=== PATIENT | male | born 1965 | race African-American/Black ===

== ENCOUNTER 2025-01-08 03:34 | Inpatient (IN) | payer MEDICAID ==
[~2025-01-08] VITALS: Ht 180.3 cm; Wt 157.4 kg
[2025-01-08] VITALS (83 sets, daily range): BP systolic 105–206; BP diastolic 73–135; PULSE 68–177; RESP 14–26; TEMP 36.8–37.1408; O2SAT 73–100
[2025-01-08] MEDS: METHYLPREDNISOLONE SOD SUCC 125MG/2ML (ACT-O-VIAL) IV ONE (03:54)
[2025-01-08] MEDS: FUROSEMIDE 40MG/4ML VIAL IV ONE (03:54)
[2025-01-08] MEDS: ONDANSETRON HCL 4MG/2ML INJ IV ONE (03:54)
[2025-01-08] MEDS: MORPHINE SULFATE 4 MG/ML INJ (FOR IV/IM USE) IV ONE (03:55)
[2025-01-08] MEDS: MAGNESIUM 2 G PREMIX 50 ML IV ONE (03:56)
[2025-01-08] MEDS: IPRATROPIUM BROMIDE (0.02%) 0.5MG/2.5ML NEB HHN SCH ×2 (03:58→08:09)
[2025-01-08] MEDS: ALBUTEROL (0.083%) 2.5MG/3ML NEB HHN SCH (03:59)
[2025-01-08 04:02] LABS: BASOPHILS % 1.1 % (0.0-2.0); EOSINOPHILS % 2.8 % (0.0-5.0); HEMATOCRIT. 39.3 % (42.0-52.0); HEMOGLOBIN. 13.2 g/dL (14.0-18.0); LYMPHOCYTES % 23.5 % (20.0-50.0); MEAN PLATELET VOLUME 8.1 fl (7.4-10.4); MONOCYTES % 7.1 % (2.0-8.0); NEUTROPHILS % 65.5 % (40.0-76.0); PLATELET 364 x1000/uL (130-400); RED BLOOD CELL COUNT 4.72 mill/uL (4.7-6.1); RED CELL DISTRIBUTION WIDTH 17.3 % (11.6-14.6)
[2025-01-08] MEDS: NITROGLYCERIN 50MG PREMIX 250 ML IV STA (04:11)
[2025-01-08 04:15] LABS: CREATININE 1.8 mg/dL (0.6-1.3); UREA NITROGEN BLOOD 24 mg/dL (9-23)
[2025-01-08 04:17] LABS: ASPARTATE AMINOTRANSFERASE 27 IU/L (<34); BILIRUBIN DIRECT 0.5 mg/dL (<=3.0); BILIRUBIN TOTAL 1.6 mg/dL (0.1-1.0); INR 1.1; PROTEIN TOTAL 7.3 g/dL (6.0-8.3)
[2025-01-08 04:21] LABS: TROPONIN I HIGH SENSITIVITY 104 ng/L (3.0-53)
[2025-01-08 04:24] LABS: BG BASE EXCESS -7.6 mmol/L (-2.0-3.0); BG CARBOXYHEMOGLOBIN 1.1 % (0.5-1.5); BG DEOXYHEMOGLOBIN 3.0 % (0.0-5.0); BG FRACTION INSPIRED OXYGEN 100; BG HCO3 ACT 24.7 mmol/L (21.0-28.0); BG METHEMOGLOBIN 0.3 % (0.5-1.5); BG OXYGEN SATURATION 97.0 % (94.0-98.0); BG OXYHEMOGLOBIN 95.6 % (94.0-98.0); BG PCO2 87.9 mmHg (35.0-48.0); BG PH 7.067 (7.350-7.450); BG PO2 120.8 mmHg (83.0-108.0); BG SAMPLE SITE RIGHT RADIAL; BG TOTAL HEMOGLOBIN 14.4 g/dL (13.5-17.5); BG VENT MODE MASK - BIPAP
[2025-01-08] MEDS: ETOMIDATE 2MG/ML 10ML VIAL IV ONE (04:30)
[2025-01-08] MEDS: ROCURONIUM BROMIDE 10MG/ML VIAL 5ML IV ONE (04:30)
[2025-01-08 05:42] LABS: CLARITY URINE CLOUDY (CLEAR); COLOR URINE DARK YELLOW (YELLOW); GLUCOSE URINE NEGATIVE (NEGATIVE); KETONES URINE NEGATIVE (NEGATIVE); LEUKOCYTE ESTERASE URINE NEGATIVE (NEGATIVE); NITRITE URINE NEGATIVE (NEGATIVE); OCCULT BLOOD URINE 2+ (NEGATIVE); PH URINE 5.5 (4.5-8.0); PROTEIN URINE 4+ (NEGATIVE); SPECIFIC GRAVITY URINE 1.022 (1.005-1.030); UROBILINOGEN URINE 1.0 E.U./dL (0.2-1.0)
[2025-01-08] MEDS: PROPOFOL 10MG/ML 100ML 100 ML IV SCH (05:44)
[2025-01-08] MEDS ORDERED: VANCOMYCIN 1G PREMIX 200 ML IV SCH (05:45)
[2025-01-08] MEDS ORDERED: VANCOMYCIN 2GM PMX (XELLIA) 400 ML IV NR (06:00)
[2025-01-08 06:04] LABS: SQUAMOUS EPITHELIAL CELL URINE 1+ /lpf (RARE/1+)
[2025-01-08 06:14] LABS: AMORPHOUS SEDIMENT URINE 1+ /lpf; BACTERIA URINE 1+
[2025-01-08] MEDS ORDERED: NICARDIPINE 40MG/200ML PREMIX 200 ML IV PRN (06:30)
[2025-01-08] MEDS: METOPROLOL TARTRATE 5MG/5ML VIAL IV SCH (06:50)
[2025-01-08] MEDS ORDERED: LIDOCAINE HCL 1% 10 MG/ML 10ML VIAL ONE (08:23)
[2025-01-08] MEDS ORDERED: FENTANYL CITRATE/PF 2,500 MCG in SODIUM CHLORIDE 0.9% 200 ML IV PRN (08:30)
[2025-01-08] MEDS ORDERED: FENTANYL 2500MCG/250ML PMX 250 ML IV PRN (08:30)
[2025-01-08 09:23] LABS: BG BASE EXCESS -6.4 mmol/L (-2.0-3.0); BG CARBOXYHEMOGLOBIN 0.4 % (0.5-1.5); BG DEOXYHEMOGLOBIN 7.0 % (0.0-5.0); BG FRACTION INSPIRED OXYGEN 80; BG HCO3 ACT 21.8 mmol/L (21.0-28.0); BG METHEMOGLOBIN 0.3 % (0.5-1.5); BG OXYGEN SATURATION 93.0 % (94.0-98.0); BG OXYHEMOGLOBIN 92.3 % (94.0-98.0); BG PCO2 55.1 mmHg (35.0-48.0); BG PEEP (cmH2O) 5.0 cmH2O; BG PH 7.215 (7.350-7.450); BG PO2 72.5 mmHg (83.0-108.0); BG SAMPLE SITE LEFT RADIAL; BG TIDAL VOLUME(mL) 500.0 mL; BG TOTAL HEMOGLOBIN 12.9 g/dL (13.5-17.5); BG VENT MODE VENT - AC; BG VENT RATE 20.0 set
[2025-01-08 10:36] LABS: TRIGLYCERIDE 131.0 mg/dL (0-150)
[2025-01-08 10:37] LABS: LDL CHOLESTEROL 84.0 mg/dL (5-100)
[2025-01-08] MEDS: DEXT 5%/0.9% NACL 1,000 ML IV SCH (10:37)
[2025-01-08] MEDS: PIPERACILLIN/TAZO 3.375G/50ML 50 ML IV SCH (10:37)
[2025-01-08] MEDS: PROPOFOL 10MG/ML 100ML 100 ML IV PRN (10:38)
[2025-01-08] MEDS ORDERED: ONDANSETRON HCL 4MG/2ML INJ IV PRN (10:45)
[2025-01-08 10:47] LABS: TROPONIN I HIGH SENSITIVITY 84.0 ng/L (3.0-53)
[2025-01-08] MEDS: SODIUM CHLORIDE 0.9% 3ML FLUSH IVF SCH (11:49)
[2025-01-08] MEDS: FENTANYL 2500MCG/250ML PMX 250 ML IV PRN (13:21)
[2025-01-08] MEDS: VANCOMYCIN 1.25GM/250ML IV SCH (13:39)
[2025-01-08] MEDS: METHYLPREDNISOLONE SOD SUCC 125MG/2ML (ACT-O-VIAL) IV SCH (13:40)
[2025-01-08] MEDS: ENALAPRIL 1.25MG/ML VIAL 1ML IV SCH (13:40)
[2025-01-08] MEDS: PANTOPRAZOLE SODIUM 40 MG/VIAL IV SCH (13:40)
[2025-01-08 13:55] LABS: CLARITY URINE CLEAR (CLEAR); COLOR URINE YELLOW (YELLOW); GLUCOSE URINE NEGATIVE (NEGATIVE); KETONES URINE NEGATIVE (NEGATIVE); LEUKOCYTE ESTERASE URINE NEGATIVE (NEGATIVE); NITRITE URINE NEGATIVE (NEGATIVE); OCCULT BLOOD URINE 2+ (NEGATIVE); PH URINE 5.0 (4.5-8.0); PROTEIN URINE TRACE (NEGATIVE); SPECIFIC GRAVITY URINE 1.013 (1.005-1.030); UROBILINOGEN URINE 0.2 E.U./dL (0.2-1.0)
[2025-01-08 14:08] LABS: SQUAMOUS EPITHELIAL CELL URINE RARE /lpf (RARE/1+)
[2025-01-08 14:09] LABS: RBC URINE 25-50 /hpf (0-2); WBC URINE 0-2 /hpf (0-2)
[2025-01-08 14:10] LABS: BACTERIA URINE TRACE
[2025-01-08 14:19] LABS: *AMPHETAMINES SCREEN URINE NEGATIVE (NEGATIVE); *BARBITURATES SCREEN URINE NEGATIVE (NEGATIVE); *BENZODIAZEPINES SCREEN URINE NEGATIVE (NEGATIVE); *COCAINE SCREEN URINE NEGATIVE (NEGATIVE); CANNABINOID URINE SCREEN PRESUMPTIVE POSITIVE (NEGATIVE); ECSTASY MDMA SCREEN URINE NEGATIVE (NEGATIVE); METHADONE URINE SCREEN NEGATIVE (NEGATIVE); OPIATES URINE SCREEN PRESUMPTIVE POSITIVE (NEGATIVE); PHENCYCLIDINE URINE SCREEN NEGATIVE (NEGATIVE)
[2025-01-08 16:20] LABS: TROPONIN I HIGH SENSITIVITY 67 ng/L (3.0-53)
[2025-01-08 19:49] LABS: INFLUENZA TYPE A Presumptive Negative (Pres. Neg.)
[2025-01-08 19:50] LABS: INFLUENZA TYPE B Presumptive Negative (Pres. Neg.)
[2025-01-08 19:51] LABS: RESPIRATORY SYNCYTIAL VIRUS Not Detected (Not Detectd)
[2025-01-08 21:54] LABS: BG BASE EXCESS 0.4 mmol/L (-2.0-3.0); BG CARBOXYHEMOGLOBIN 0.6 % (0.5-1.5); BG DEOXYHEMOGLOBIN 1.3 % (0.0-5.0); BG FRACTION INSPIRED OXYGEN 80; BG HCO3 ACT 22.9 mmol/L (21.0-28.0); BG METHEMOGLOBIN 0.1 % (0.5-1.5); BG OXYGEN SATURATION 98.7 % (94.0-98.0); BG OXYHEMOGLOBIN 98.0 % (94.0-98.0); BG PCO2 30.2 mmHg (35.0-48.0); BG PEEP (cmH2O) 5.0 cmH2O; BG PH 7.498 (7.350-7.450); BG PO2 126.5 mmHg (83.0-108.0); BG SAMPLE SITE ALINE; BG TIDAL VOLUME(mL) 550.0 mL; BG TOTAL HEMOGLOBIN 11.4 g/dL (13.5-17.5); BG VENT MODE VENT - AC; BG VENT RATE 26.0 set
[2025-01-08] MEDS ORDERED: DEXTROSE 50% WATER 50ML SYRINGE IV PRN (23:45)
[2025-01-08] MEDS: BLOOD SUGAR DIAGNOSTIC STRIP TEST SCH (23:49)
[2025-01-08] MEDS: INSULIN LISPRO 100 UNITS/ML SUBCUT SCH (23:52)
[2025-01-09] VITALS (105 sets, daily range): BP systolic 118–149; BP diastolic 68–101; PULSE 57–82; RESP 18–30; TEMP 36.9–37.2; O2SAT 94–100
[2025-01-09 06:29] LABS: HEMATOCRIT. 33.3 % (42.0-52.0); HEMOGLOBIN. 11.2 g/dL (14.0-18.0); MEAN PLATELET VOLUME 8.2 fl (7.4-10.4); PLATELET 245 x1000/uL (130-400); RED BLOOD CELL COUNT 4.06 mill/uL (4.7-6.1); RED CELL DISTRIBUTION WIDTH 17.1 % (11.6-14.6)
[2025-01-09] MEDS ORDERED: BLOOD SUGAR DIAGNOSTIC STRIP TEST SCH (06:30)
[2025-01-09 06:32] LABS: CREATININE 2.1 mg/dL (0.6-1.3); TRIGLYCERIDE 145 mg/dL (0-150); UREA NITROGEN BLOOD 30 mg/dL (9-23)
[2025-01-09 06:36] LABS: TROPONIN I HIGH SENSITIVITY 78 ng/L (3.0-53)
[2025-01-09] MEDS ORDERED: INSULIN LISPRO 100 UNITS/ML SUBCUT SCH (07:00)
[2025-01-09] MEDS ORDERED: VANCOMYCIN 1GM/200ML PMX (BAXTER) IV SCH (09:00)
[2025-01-09 09:38] LABS: BG BASE EXCESS 0.1 mmol/L (-2.0-3.0); BG CARBOXYHEMOGLOBIN 0.3 % (0.5-1.5); BG DEOXYHEMOGLOBIN 1.2 % (0.0-5.0); BG FRACTION INSPIRED OXYGEN 80; BG HCO3 ACT 22.8 mmol/L (21.0-28.0); BG METHEMOGLOBIN 0.3 % (0.5-1.5); BG OXYGEN SATURATION 98.8 % (94.0-98.0); BG OXYHEMOGLOBIN 98.2 % (94.0-98.0); BG PCO2 30.5 mmHg (35.0-48.0); BG PEEP (cmH2O) 5.0 cmH2O; BG PH 7.491 (7.350-7.450); BG PO2 134.2 mmHg (83.0-108.0); BG SAMPLE SITE RIGHT RADIAL; BG TIDAL VOLUME(mL) 550.0 mL; BG TOTAL HEMOGLOBIN 11.1 g/dL (13.5-17.5); BG VENT MODE VENT - AC; BG VENT RATE 26.0 set
[2025-01-09] MEDS: AMLODIPINE 5MG TABLET PO SCH ×2 (09:59→21:08)
[2025-01-09] MEDS: FUROSEMIDE 40MG/4ML VIAL IVP SCH (09:59)
[2025-01-09 11:23] LABS: BAND% 8.0 % (1.0-6.0); LYMPHOCYTES % MANUAL 4.0 % (20.0-50.0); MONOCYTES % MANUAL 3.0 % (2.0-8.0); NEUTROPHILS % MANUAL 85.0 % (45.0-75.0); PLATELET ESTIMATE NORMAL
[2025-01-09] MEDS: ENOXAPARIN 40MG/0.4ML SYR SUBCUT SCH (11:54)
[2025-01-09] MEDS: NITROGLYCERIN OINT 1GM/INCH UDPKT TD SCH (11:54)
[2025-01-09] MEDS: IPRATROPIUM/ALBUTEROL 0.5-3(2.5)MG/3ML NEB HHN PRN (12:25)
[2025-01-09] MEDS: IPRATROPIUM/ALBUTEROL 0.5-3(2.5)MG/3ML NEB HHN SCH (14:40)
[2025-01-09] MEDS: PROPOFOL 10MG/ML 100ML 100 ML IV PRN (14:47)
[2025-01-09] MEDS: VANCOMYCIN 1GM PMX (XELLIA) 200 ML IV SCH (14:47)
[2025-01-10] VITALS (106 sets, daily range): BP systolic 108–148; BP diastolic 57–103; PULSE 48–85; RESP 19–32; TEMP 36.6–37.1; O2SAT 92–99
[2025-01-10 05:15] LABS: HEMATOCRIT. 32.0 % (42.0-52.0); HEMOGLOBIN. 10.8 g/dL (14.0-18.0); MEAN PLATELET VOLUME 8.4 fl (7.4-10.4); PLATELET 220 x1000/uL (130-400); RED BLOOD CELL COUNT 3.94 mill/uL (4.7-6.1); RED CELL DISTRIBUTION WIDTH 17.2 % (11.6-14.6)
[2025-01-10 05:27] LABS: CREATININE 2.4 mg/dL (0.6-1.3)
[2025-01-10 05:28] LABS: TRIGLYCERIDE 249.0 mg/dL (0-150); UREA NITROGEN BLOOD 38.0 mg/dL (9-23)
[2025-01-10 10:30] LABS: BG BASE EXCESS -1.0 mmol/L (-2.0-3.0); BG CARBOXYHEMOGLOBIN 0.8 % (0.5-1.5); BG DEOXYHEMOGLOBIN 4.8 % (0.0-5.0); BG FRACTION INSPIRED OXYGEN 60; BG HCO3 ACT 23.8 mmol/L (21.0-28.0); BG METHEMOGLOBIN 0.1 % (0.5-1.5); BG OXYGEN SATURATION 95.2 % (94.0-98.0); BG OXYHEMOGLOBIN 94.3 % (94.0-98.0); BG PCO2 40.1 mmHg (35.0-48.0); BG PEEP (cmH2O) 5.0 cmH2O; BG PH 7.392 (7.350-7.450); BG PO2 81.2 mmHg (83.0-108.0); BG SAMPLE SITE RIGHT RADIAL; BG TIDAL VOLUME(mL) 500.0 mL; BG TOTAL HEMOGLOBIN 12.1 g/dL (13.5-17.5); BG VENT MODE VENT - AC; BG VENT RATE 22.0 set
[2025-01-10] MEDS: PROPOFOL 10MG/ML 100ML 100 ML IV PRN (13:00)
[2025-01-10] MEDS: METHYLPREDNISOLONE SOD SUCC 40MG/ML (ACT-O-VIAL) IV SCH (13:02)
[2025-01-10] MEDS: ENALAPRIL 1.25MG/ML VIAL 1ML IV SCH (13:03)
[2025-01-10 14:27] LABS: BAND% 2.0 % (1.0-6.0); LYMPHOCYTES % MANUAL 11.0 % (20.0-50.0); MONOCYTES % MANUAL 1.0 % (2.0-8.0); NEUTROPHILS % MANUAL 86.0 % (45.0-75.0); PLATELET ESTIMATE NORMAL
[2025-01-10 19:08] LABS: SODIUM URINE RANDOM 25.0 mEq/L
[2025-01-10 19:13] LABS: CLARITY URINE TURBID (CLEAR); COLOR URINE YELLOW (YELLOW); PH URINE 5.5 (4.5-8.0); SPECIFIC GRAVITY URINE 1.023 (1.005-1.030)
[2025-01-10 19:14] LABS: GLUCOSE URINE NEGATIVE (NEGATIVE); KETONES URINE NEGATIVE (NEGATIVE); NITRITE URINE NEGATIVE (NEGATIVE); UROBILINOGEN URINE 1.0 E.U./dL (0.2-1.0)
[2025-01-10 19:15] LABS: CREATININE URINE RANDOM 118.9 mg/dL; LEUKOCYTE ESTERASE URINE 1+ (NEGATIVE); OCCULT BLOOD URINE 3+ (NEGATIVE); PROTEIN URINE 2+ (NEGATIVE)
[2025-01-10 19:42] LABS: OSMOLALITY URINE 567.0 mOsm/kg (500-850)
[2025-01-10 20:05] LABS: BACTERIA URINE 1+; RBC URINE TNTC /hpf (0-2); SQUAMOUS EPITHELIAL CELL URINE 1+ /lpf (RARE/1+); URIC ACID CRYSTALS URINE 4+ /lpf
[2025-01-10] MEDS: VANCOMYCIN 1.5GM PMX (XELLIA) 300 ML IV SCH (22:06)
[2025-01-11] VITALS (109 sets, daily range): BP systolic 116–191; BP diastolic 75–122; PULSE 46–84; RESP 16–29; TEMP 36.4–36.9; O2SAT 92–100
[2025-01-11 06:45] LABS: CREATININE 2.6 mg/dL (0.6-1.3); TRIGLYCERIDE 327.0 mg/dL (0-150); UREA NITROGEN BLOOD 42.0 mg/dL (9-23)
[2025-01-11] MEDS: METHYLPREDNISOLONE SOD SUCC 40MG/ML (ACT-O-VIAL) IV SCH (09:18)
[2025-01-11 09:48] LABS: BG BASE EXCESS -1.6 mmol/L (-2.0-3.0); BG CARBOXYHEMOGLOBIN 0.3 % (0.5-1.5); BG DEOXYHEMOGLOBIN 2.9 % (0.0-5.0); BG FRACTION INSPIRED OXYGEN 60; BG HCO3 ACT 22.9 mmol/L (21.0-28.0); BG METHEMOGLOBIN 0.3 % (0.5-1.5); BG OXYGEN SATURATION 97.1 % (94.0-98.0); BG OXYHEMOGLOBIN 96.5 % (94.0-98.0); BG PCO2 38.0 mmHg (35.0-48.0); BG PEEP (cmH2O) 5.0 cmH2O; BG PH 7.398 (7.350-7.450); BG PO2 98.9 mmHg (83.0-108.0); BG SAMPLE SITE RIGHT RADIAL; BG TIDAL VOLUME(mL) 500.0 mL; BG TOTAL HEMOGLOBIN 11.2 g/dL (13.5-17.5); BG TOTAL RESPIRATORY RATE 22 b/min; BG VENT MODE VENT - AC; BG VENT RATE 22.0 set
[2025-01-11] MEDS: MIDAZOLAM 100MG/100ML PMX 100 ML IV PRN (09:48)
[2025-01-11 21:22] LABS: CREATININE URINE RANDOM 81.3 mg/dL
[2025-01-11 21:23] LABS: PROTEIN URINE RANDOM 246.0 mg/dL
[2025-01-12] VITALS (110 sets, daily range): BP systolic 127–172; BP diastolic 86–113; PULSE 57–84; RESP 14–28; TEMP 36.6–37; O2SAT 89–98
[2025-01-12 05:36] LABS: HEMATOCRIT. 30.7 % (42.0-52.0); HEMOGLOBIN. 10.3 g/dL (14.0-18.0); MEAN PLATELET VOLUME 8.2 fl (7.4-10.4); PLATELET 212 x1000/uL (130-400); RED BLOOD CELL COUNT 3.75 mill/uL (4.7-6.1); RED CELL DISTRIBUTION WIDTH 17.2 % (11.6-14.6)
[2025-01-12 05:50] LABS: CREATININE 2.5 mg/dL (0.6-1.3)
[2025-01-12 05:51] LABS: TROPONIN I HIGH SENSITIVITY 37 ng/L (3.0-53); UREA NITROGEN BLOOD 47 mg/dL (9-23)
[2025-01-12] MEDS: DEXMEDETOMIDINE 250 ML IV PRN (06:53)
[2025-01-12] MEDS: EMPAGLIFLOZIN 10MG TABLET PO SCH (09:07)
[2025-01-12 09:37] LABS: BG BASE EXCESS 1.5 mmol/L (-2.0-3.0); BG CARBOXYHEMOGLOBIN 1.1 % (0.5-1.5); BG DEOXYHEMOGLOBIN 10.2 % (0.0-5.0); BG FRACTION INSPIRED OXYGEN 50; BG HCO3 ACT 27.3 mmol/L (21.0-28.0); BG METHEMOGLOBIN 0.1 % (0.5-1.5); BG OXYGEN SATURATION 89.7 % (94.0-98.0); BG OXYHEMOGLOBIN 88.6 % (94.0-98.0); BG PCO2 48.6 mmHg (35.0-48.0); BG PEEP (cmH2O) 5.0 cmH2O; BG PH 7.367 (7.350-7.450); BG PO2 61.7 mmHg (83.0-108.0); BG SAMPLE SITE RIGHT RADIAL; BG TIDAL VOLUME(mL) 500.0 mL; BG TOTAL HEMOGLOBIN 10.4 g/dL (13.5-17.5); BG VENT MODE VENT - SIMV; BG VENT RATE 18.0 set
[2025-01-12 11:08] LABS: BAND% 8.0 % (1.0-6.0); LYMPHOCYTES % MANUAL 5.0 % (20.0-50.0); MONOCYTES % MANUAL 2.0 % (2.0-8.0); NEUTROPHILS % MANUAL 85.0 % (45.0-75.0)
[2025-01-12 11:09] LABS: PLATELET ESTIMATE NORMAL
[2025-01-12] MEDS: NICARDIPINE 40MG/200ML PREMIX 200 ML IV PRN (11:29)
[2025-01-12] MEDS: HYDRALAZINE HCL 25MG TABLET PO SCH (13:49)
[2025-01-12] MEDS ORDERED: FUROSEMIDE 20MG/2ML VIAL IVP ONE (15:45)
[2025-01-12] MEDS: FUROSEMIDE 20MG/2ML VIAL IVP SCH (16:45)
[2025-01-12 17:37] LABS: BG BASE EXCESS 3.1 mmol/L (-2.0-3.0); BG CARBOXYHEMOGLOBIN 0.6 % (0.5-1.5); BG DEOXYHEMOGLOBIN 8.2 % (0.0-5.0); BG FRACTION INSPIRED OXYGEN 50; BG HCO3 ACT 28.2 mmol/L (21.0-28.0); BG METHEMOGLOBIN 0.3 % (0.5-1.5); BG OXYGEN SATURATION 91.7 % (94.0-98.0); BG OXYHEMOGLOBIN 90.9 % (94.0-98.0); BG PCO2 45.1 mmHg (35.0-48.0); BG PEEP (cmH2O) 5.0 cmH2O; BG PH 7.414 (7.350-7.450); BG PO2 62.9 mmHg (83.0-108.0); BG SAMPLE SITE RIGHT RADIAL; BG TIDAL VOLUME(mL) 500.0 mL; BG TOTAL HEMOGLOBIN 13.0 g/dL (13.5-17.5); BG VENT MODE VENT - SIMV; BG VENT RATE 12.0 set
[2025-01-13] VITALS (106 sets, daily range): BP systolic 123–181; BP diastolic 65–107; PULSE 70–90; RESP 7–26; TEMP 36.6–37.4; O2SAT 89–100
[2025-01-13 06:26] LABS: PLATELET 237 x1000/uL (130-400); RED BLOOD CELL COUNT 4.73 mill/uL (4.7-6.1); RED CELL DISTRIBUTION WIDTH 16.8 % (11.6-14.6)
[2025-01-13 06:42] LABS: CREATININE 2.0 mg/dL (0.6-1.3); UREA NITROGEN BLOOD 41.0 mg/dL (9-23)
[2025-01-13 09:10] LABS: COMPLEMENT C3 124 mg/dL (82-167); COMPLEMENT C4 27 mg/dL (12-38)
[2025-01-13 10:07] LABS: ANTI-NUCLEAR ANTIBODIES DIRECT Negative (Negative)
[2025-01-13] MEDS: CARVEDILOL 3.125 MG TABLET PO SCH (10:28)
[2025-01-13] MEDS: LACTULOSE 20G/30ML UDC PO NR (11:54)
[2025-01-13] MEDS: HYDRALAZINE HCL 50MG TABLET PO NR (11:55)
[2025-01-13 13:02] LABS: BG BASE EXCESS 3.9 mmol/L (-2.0-3.0); BG CARBOXYHEMOGLOBIN 0.8 % (0.5-1.5); BG DEOXYHEMOGLOBIN 4.4 % (0.0-5.0); BG FRACTION INSPIRED OXYGEN 40; BG HCO3 ACT 28.5 mmol/L (21.0-28.0); BG METHEMOGLOBIN 0.3 % (0.5-1.5); BG OXYGEN SATURATION 95.6 % (94.0-98.0); BG OXYHEMOGLOBIN 94.5 % (94.0-98.0); BG PCO2 42.4 mmHg (35.0-48.0); BG PEEP (cmH2O) 5.0 cmH2O; BG PH 7.445 (7.350-7.450); BG PO2 80.3 mmHg (83.0-108.0); BG SAMPLE SITE RIGHT RADIAL; BG TOTAL HEMOGLOBIN 14.8 g/dL (13.5-17.5); BG VENT MODE VENT - CPAP
[2025-01-13] MEDS: HYDRALAZINE HCL 50MG TABLET PO SCH (14:55)
[2025-01-13] MEDS: MINOXIDIL 2.5MG TABLET NG SCH (20:20)
[2025-01-13] MEDS: HYDRALAZINE HCL 100MG TABLET NG SCH (21:19)
[2025-01-14] VITALS (53 sets, daily range): BP systolic 81–153; BP diastolic 55–138; PULSE 77–163; RESP 7–34; TEMP 36.8–37.2; O2SAT 93–100
[2025-01-14] MEDS: FUROSEMIDE 40MG/4ML VIAL IVP SCH ×2 (00:13→09:01)
[2025-01-14 00:40] LABS: BG BASE EXCESS 5.4 mmol/L (-2.0-3.0); BG CARBOXYHEMOGLOBIN 0.6 % (0.5-1.5); BG DEOXYHEMOGLOBIN 5.5 % (0.0-5.0); BG FLOW(L/min) 25.00 L/min; BG FRACTION INSPIRED OXYGEN 100; BG HCO3 ACT 28.6 mmol/L (21.0-28.0); BG METHEMOGLOBIN 0.0 % (0.5-1.5); BG OXYGEN SATURATION 94.5 % (94.0-98.0); BG OXYHEMOGLOBIN 93.9 % (94.0-98.0); BG PCO2 37.2 mmHg (35.0-48.0); BG PH 7.504 (7.350-7.450); BG PO2 71.3 mmHg (83.0-108.0); BG SAMPLE SITE RIGHT RADIAL; BG TOTAL HEMOGLOBIN 14.1 g/dL (13.5-17.5); BG VENT MODE HIGH FLOW
[2025-01-14] MEDS ORDERED: AMIODARONE HCL 150 MG in DEXT 5% WATER 100 ML IV ONE (01:15)
[2025-01-14] MEDS ORDERED: MORPHINE SULFATE 4 MG/ML INJ (FOR IV/IM USE) IV NR (01:15)
[2025-01-14] MEDS ORDERED: AMIODARONE 150MG/100ML D5W 100 ML IV NR (01:15)
[2025-01-14] MEDS: AMIODARONE 150MG/100ML D5W 100 ML IV NR ×2 (01:51→06:35)
[2025-01-14] MEDS: AMIODARONE 360MG/200ML 200 ML IV SCH (02:08)
[2025-01-14] MEDS: MORPHINE SULFATE 4 MG/ML INJ (FOR IV/IM USE) IV NR (02:23)
[2025-01-14 03:10] LABS: CREATININE 2.0 mg/dL (0.6-1.3); UREA NITROGEN BLOOD 42 mg/dL (9-23)
[2025-01-14 03:12] LABS: ASPARTATE AMINOTRANSFERASE 40 IU/L (<34); BILIRUBIN TOTAL 1.2 mg/dL (0.1-1.0); PROTEIN TOTAL 5.9 g/dL (6.0-8.3)
[2025-01-14 03:58] LABS: TROPONIN I HIGH SENSITIVITY 60 ng/L (3.0-53)
[2025-01-14 06:06] LABS: HEMATOCRIT. 39.0 % (42.0-52.0); HEMOGLOBIN. 13.0 g/dL (14.0-18.0); MEAN PLATELET VOLUME 8.1 fl (7.4-10.4); PLATELET 260 x1000/uL (130-400); RED BLOOD CELL COUNT 4.77 mill/uL (4.7-6.1); RED CELL DISTRIBUTION WIDTH 17.1 % (11.6-14.6)
[2025-01-14 06:09] LABS: CREATININE 2.0 mg/dL (0.6-1.3); UREA NITROGEN BLOOD 43.0 mg/dL (9-23)
[2025-01-14] MEDS ORDERED: DOCUSATE SODIUM SUGAR FREE 100MG/10ML UDC NG SCH (09:00)
[2025-01-14] MEDS ORDERED: MULTIVITAMINS,THER W-MINERALS TABLET PO SCH (09:00)
[2025-01-14] MEDS: DOCUSATE SODIUM 250MG CAPSULE PO ONE (10:40)
[2025-01-14 10:41] LABS: TROPONIN I HIGH SENSITIVITY 57 ng/L (3.0-53)
[2025-01-14] MEDS: DILTIAZEM HCL 60MG TABLET ONE (10:43)
[2025-01-14] MEDS: ENOXAPARIN 150MG/ML SYR SUBCUT ONE (10:46)
[2025-01-14] MEDS: POTASSIUM CHLORIDE 10MEQ TABLET SR PO ONE (10:47)
[2025-01-14] MEDS: POTASSIUM CHLORIDE 10MEQ TABLET SR PO SCH (10:50)
[2025-01-14] MEDS: DILTIAZEM HCL 60MG TABLET PO SCH (10:52)
[2025-01-14] MEDS: ENOXAPARIN 150MG/ML SYR SUBCUT SCH ×2 (10:53→21:05)
[2025-01-14] MEDS: DOCUSATE SODIUM 250MG CAPSULE PO SCH (10:55)
[2025-01-14 11:27] LABS: BAND% 5.0 % (1.0-6.0); LYMPHOCYTES % MANUAL 3.0 % (20.0-50.0); MONOCYTES % MANUAL 6.0 % (2.0-8.0); NEUTROPHILS % MANUAL 86.0 % (45.0-75.0); PLATELET ESTIMATE NORMAL
[2025-01-14 12:05] LABS: INR 1.1
[2025-01-14 13:07] LABS: ATYPICAL P-ANCA <1:20 titer (Neg:<1:20); CYTOPLASMIC C-ANCA <1:20 titer (Neg:<1:20); PERINUCLEAR P-ANCA <1:20 titer (Neg:<1:20)
[2025-01-14 14:08] LABS: ANTI-MYELOPEROXIDASE AB < 0.2 units (0.0-0.9); ANTI-PROTEINASE 3 ABS < 0.2 units (0.0-0.9)
[2025-01-14 14:19] LABS: BG BASE EXCESS 2.6 mmol/L (-2.0-3.0); BG CARBOXYHEMOGLOBIN 0.8 % (0.5-1.5); BG DEOXYHEMOGLOBIN 3.3 % (0.0-5.0); BG FLOW(L/min) 25.00 L/min; BG FRACTION INSPIRED OXYGEN 50; BG HCO3 ACT 27.3 mmol/L (21.0-28.0); BG METHEMOGLOBIN 0.3 % (0.5-1.5); BG OXYGEN SATURATION 96.7 % (94.0-98.0); BG OXYHEMOGLOBIN 95.6 % (94.0-98.0); BG PCO2 42.5 mmHg (35.0-48.0); BG PH 7.426 (7.350-7.450); BG PO2 89.8 mmHg (83.0-108.0); BG SAMPLE SITE RIGHT RADIAL; BG TOTAL HEMOGLOBIN 13.9 g/dL (13.5-17.5); BG VENT MODE HIGH FLOW
[2025-01-14] MEDS: SPIRONOLACTONE 25MG TABLET PO SCH (15:59)
[2025-01-14] MEDS: AMIODARONE HCL 900 MG in DEXT 5% WATER 500 ML IV SCH (21:07)
[2025-01-14] MEDS: AMIODARONE 200MG TABLET PO SCH (21:08)
[2025-01-15] VITALS (58 sets, daily range): BP systolic 89–159; BP diastolic 59–148; PULSE 100–150; RESP 10–29; TEMP 36.7–37.1; O2SAT 94–99
[2025-01-15] MEDS: AMIODARONE 200MG TABLET PO SCH (06:48)
[2025-01-15] MEDS ORDERED: AMIODARONE 200MG TABLET PO SCH (07:00)
[2025-01-15 07:02] LABS: HEMATOCRIT. 40.5 % (42.0-52.0); HEMOGLOBIN. 13.3 g/dL (14.0-18.0); MEAN PLATELET VOLUME 8.1 fl (7.4-10.4); PLATELET 281 x1000/uL (130-400); RED BLOOD CELL COUNT 4.89 mill/uL (4.7-6.1); RED CELL DISTRIBUTION WIDTH 17.0 % (11.6-14.6)
[2025-01-15 07:09] LABS: CREATININE 2.4 mg/dL (0.6-1.3)
[2025-01-15 07:10] LABS: UREA NITROGEN BLOOD 57 mg/dL (9-23)
[2025-01-15 07:11] LABS: ASPARTATE AMINOTRANSFERASE 30 IU/L (<34)
[2025-01-15 07:12] LABS: BILIRUBIN DIRECT 0.3 mg/dL (<=3.0); BILIRUBIN TOTAL 0.8 mg/dL (0.1-1.0); PROTEIN TOTAL 6.1 g/dL (6.0-8.3)
[2025-01-15 07:16] LABS: TROPONIN I HIGH SENSITIVITY 61 ng/L (3.0-53)
[2025-01-15] MEDS: DILTIAZEM HCL 90MG TABLET PO SCH (11:34)
[2025-01-15 18:16] LABS: LYMPHOCYTES % MANUAL 9.0 % (20.0-50.0); MONOCYTES % MANUAL 4.0 % (2.0-8.0); NEUTROPHILS % MANUAL 87.0 % (45.0-75.0); PLATELET ESTIMATE NORMAL
[2025-01-16] VITALS (28 sets, daily range): BP systolic 93–169; BP diastolic 54–149; PULSE 58–143; RESP 14–32; TEMP 36.4–37; O2SAT 93–100
[2025-01-16] MEDS: DILTIAZEM HCL 5MG/ML 5ML VIAL IV PRN (03:50)
[2025-01-16 05:38] LABS: HEMATOCRIT. 41.3 % (42.0-52.0); HEMOGLOBIN. 13.7 g/dL (14.0-18.0); MEAN PLATELET VOLUME 7.9 fl (7.4-10.4); PLATELET 316 x1000/uL (130-400); RED BLOOD CELL COUNT 5.04 mill/uL (4.7-6.1); RED CELL DISTRIBUTION WIDTH 17.4 % (11.6-14.6)
[2025-01-16 05:46] LABS: CREATININE 2.4 mg/dL (0.6-1.3); UREA NITROGEN BLOOD 55 mg/dL (9-23)
[2025-01-16 05:50] LABS: TROPONIN I HIGH SENSITIVITY 55 ng/L (3.0-53)
[2025-01-16 15:42] LABS: LYMPHOCYTES % MANUAL 6.0 % (20.0-50.0); MONOCYTES % MANUAL 5.0 % (2.0-8.0); NEUTROPHILS % MANUAL 89.0 % (45.0-75.0); PLATELET ESTIMATE NORMAL
[2025-01-16] MEDS: APIXABAN 5 MG TABLET PO SCH (20:31)
[2025-01-16] MEDS: SACUBITRIL/VALSARTAN 24MG/26MG TABLET PO SCH (20:32)
[2025-01-17] VITALS (12 sets, daily range): BP systolic 100–148; BP diastolic 71–98; PULSE 74–145; RESP 14–22; TEMP 36.5–37.3; O2SAT 91–99
[2025-01-17 06:19] LABS: HEMATOCRIT. 41.1 % (42.0-52.0); HEMOGLOBIN. 13.8 g/dL (14.0-18.0); MEAN PLATELET VOLUME 8.2 fl (7.4-10.4); PLATELET 301 x1000/uL (130-400); RED BLOOD CELL COUNT 5.04 mill/uL (4.7-6.1); RED CELL DISTRIBUTION WIDTH 17.3 % (11.6-14.6)
[2025-01-17 06:32] LABS: CREATININE 2.8 mg/dL (0.6-1.3); UREA NITROGEN BLOOD 67 mg/dL (9-23)
[2025-01-17 06:34] LABS: PHOSPHORUS 4.2 mg/dL (2.5-4.9)
[2025-01-17 13:24] LABS: BAND% 5.0 % (1.0-6.0); LYMPHOCYTES % MANUAL 4.0 % (20.0-50.0); MONOCYTES % MANUAL 5.0 % (2.0-8.0); NEUTROPHILS % MANUAL 86.0 % (45.0-75.0); PLATELET ESTIMATE NORMAL
[2025-01-17 13:59] LABS: CLARITY URINE TURBID (CLEAR); COLOR URINE ORANGE (YELLOW); GLUCOSE URINE 3+ (NEGATIVE); KETONES URINE NEGATIVE (NEGATIVE); LEUKOCYTE ESTERASE URINE 1+ (NEGATIVE); NITRITE URINE NEGATIVE (NEGATIVE); OCCULT BLOOD URINE 3+ (NEGATIVE); PH URINE 5.0 (4.5-8.0); PROTEIN URINE 1+ (NEGATIVE); SPECIFIC GRAVITY URINE 1.020 (1.005-1.030); UROBILINOGEN URINE 0.2 E.U./dL (0.2-1.0)
[2025-01-17 14:18] LABS: BACTERIA URINE NONE SEEN; RBC URINE TNTC /hpf (0-2); SQUAMOUS EPITHELIAL CELL URINE 1+ /lpf (RARE/1+); YEAST URINE NONE SEEN
[2025-01-17 14:22] LABS: URIC ACID CRYSTALS URINE 1+ /lpf
[2025-01-18] VITALS (9 sets, daily range): BP systolic 104–138; BP diastolic 55–89; PULSE 85–142; RESP 16–23; TEMP 36.3–36.7; O2SAT 92–98
[2025-01-18] MEDS: ENOXAPARIN 150MG/ML SYR SUBCUT SCH (18:27)
[2025-01-18] MEDS: CARVEDILOL 6.25 MG TABLET PO SCH (22:43)
[2025-01-19] VITALS: BP 131/76; PULSE 109; RESP 18; TEMP 36.6
[2025-01-19 04:15] VITALS: PULSE 126; RESP 19; TEMP 36.6
[2025-01-19 06:26] LABS: HEMATOCRIT. 43.0 % (42.0-52.0); HEMOGLOBIN. 14.2 g/dL (14.0-18.0); MEAN PLATELET VOLUME 8.2 fl (7.4-10.4); PLATELET 318 x1000/uL (130-400); RED BLOOD CELL COUNT 5.20 mill/uL (4.7-6.1); RED CELL DISTRIBUTION WIDTH 17.3 % (11.6-14.6)
[2025-01-19 06:43] LABS: CREATININE 3.3 mg/dL (0.6-1.3); UREA NITROGEN BLOOD 65 mg/dL (9-23)
[2025-01-19 08:00] VITALS: BP 118/61; TEMP 36.7
[2025-01-19] MEDS ORDERED: REGADENOSON 0.4 MG/5 ML IV SCH (09:00)
[2025-01-19 12:00] VITALS: BP 142/66; PULSE 100; RESP 18; TEMP 36.7
[2025-01-19 16:00] VITALS: BP 147/84; TEMP 36.4
[2025-01-19 18:03] LABS: LYMPHOCYTES % MANUAL 4.0 % (20.0-50.0); MONOCYTES % MANUAL 3.0 % (2.0-8.0); NEUTROPHILS % MANUAL 93.0 % (45.0-75.0); PLATELET ESTIMATE NORMAL
[2025-01-19] MEDS: PREDNISONE 10MG TABLET PO SCH (18:49)
[2025-01-19] MEDS: CARVEDILOL 12.5MG TABLET PO SCH (21:00)
[2025-01-20] VITALS (7 sets, daily range): BP systolic 111–169; BP diastolic 56–96; PULSE 69–93; RESP 16–24; TEMP 36.2–37.1; O2SAT 92–99
[2025-01-20 05:44] LABS: HEMATOCRIT. 40.5 % (42.0-52.0); HEMOGLOBIN. 13.1 g/dL (14.0-18.0); MEAN PLATELET VOLUME 8.2 fl (7.4-10.4); PLATELET 292 x1000/uL (130-400); RED BLOOD CELL COUNT 4.87 mill/uL (4.7-6.1); RED CELL DISTRIBUTION WIDTH 17.4 % (11.6-14.6)
[2025-01-20 05:58] LABS: CREATININE 3.1 mg/dL (0.6-1.3); UREA NITROGEN BLOOD 73 mg/dL (9-23)
[2025-01-20 06:00] LABS: ASPARTATE AMINOTRANSFERASE 13 IU/L (<34); BILIRUBIN DIRECT 0.3 mg/dL (<=3.0)
[2025-01-20 06:01] LABS: BILIRUBIN TOTAL 0.6 mg/dL (0.1-1.0); PROTEIN TOTAL 5.8 g/dL (6.0-8.3)
[2025-01-20] MEDS: ENOXAPARIN 150MG/ML SYR SUBCUT SCH (09:00)
[2025-01-20 09:19] LABS: LYMPHOCYTES % MANUAL 2.0 % (20.0-50.0); MONOCYTES % MANUAL 4.0 % (2.0-8.0); NEUTROPHILS % MANUAL 94.0 % (45.0-75.0); PLATELET ESTIMATE NORMAL
[2025-01-21] VITALS (11 sets, daily range): BP systolic 104–156; BP diastolic 59–99; PULSE 68–112; RESP 13–27; TEMP 36.4–37.3; O2SAT 92–100
[2025-01-21 06:55] LABS: HEMATOCRIT. 37.0 % (42.0-52.0); HEMOGLOBIN. 12.4 g/dL (14.0-18.0); MEAN PLATELET VOLUME 7.9 fl (7.4-10.4); PLATELET 260 x1000/uL (130-400); RED BLOOD CELL COUNT 4.48 mill/uL (4.7-6.1); RED CELL DISTRIBUTION WIDTH 17.4 % (11.6-14.6)
[2025-01-21 07:11] LABS: CREATININE 3.1 mg/dL (0.6-1.3); UREA NITROGEN BLOOD 72.0 mg/dL (9-23)
[2025-01-21] MEDS: PREDNISONE 10MG TABLET PO SCH (10:05)
[2025-01-21] MEDS: AMIODARONE 200MG TABLET PO SCH (10:05)
[2025-01-21] MEDS: SODIUM ZIRCONIUM CYCLOSILICATE 10GM/PACKET PO SCH (10:05)
[2025-01-21 13:22] LABS: LYMPHOCYTES % MANUAL 8.0 % (20.0-50.0); MONOCYTES % MANUAL 6.0 % (2.0-8.0); NEUTROPHILS % MANUAL 86.0 % (45.0-75.0); PLATELET ESTIMATE NORMAL
[2025-01-21] MEDS ORDERED: ZOLPIDEM TARTRATE 5MG TABLET PO PRN (19:45)
[2025-01-21] MEDS ORDERED: DEXTROSE 50% WATER 50ML SYRINGE IV PRN (19:45)
[2025-01-21] MEDS: INSULIN LISPRO 100 UNITS/ML SUBCUT SCH (21:00)
[2025-01-21] MEDS: BLOOD SUGAR DIAGNOSTIC STRIP TEST SCH (21:03)
[2025-01-22] VITALS: BP 152/61; PULSE 82; RESP 13
[2025-01-22 04:00] VITALS: BP 136/67; PULSE 92; RESP 18; TEMP 36.8; O2SAT 100
[2025-01-22 08:00] VITALS: BP 124/76; PULSE 68; RESP 18; TEMP 36.2; O2SAT 98
[2025-01-22 12:00] VITALS: BP 115/85; PULSE 67; RESP 20; TEMP 36.3; O2SAT 100
[2025-01-22 12:01] LABS: HEMATOCRIT. 34.8 % (42.0-52.0); HEMOGLOBIN. 11.5 g/dL (14.0-18.0); MEAN PLATELET VOLUME 7.8 fl (7.4-10.4); PLATELET 237 x1000/uL (130-400); RED BLOOD CELL COUNT 4.23 mill/uL (4.7-6.1); RED CELL DISTRIBUTION WIDTH 17.0 % (11.6-14.6)
[2025-01-22 12:21] LABS: CREATININE 3.0 mg/dL (0.6-1.3); UREA NITROGEN BLOOD 65.0 mg/dL (9-23)
[2025-01-22] MEDS ORDERED: COR12 PO (14:25)
[2025-01-22] MEDS ORDERED: EMPA10TA PO (14:25)
[2025-01-22] MEDS ORDERED: HYDR100T31 NG (14:25)
[2025-01-22] MEDS ORDERED: APIX5TAB MT (14:25)
[2025-01-22] MEDS ORDERED: AMI2 PO (14:25)
[2025-01-22] MEDS ORDERED: ISOS20TA8 MT (14:29)
[2025-01-22] MEDS ORDERED: CARLA MT (14:29)
[2025-01-22] MEDS ORDERED: FURO-151 MT (14:29)
[2025-01-22 16:14] VITALS: BP 142/73; PULSE 68; RESP 20; TEMP 36.2; O2SAT 99
[2025-01-22 19:52] LABS: BAND% 5.0 % (1.0-6.0); EOSINOPHILS % MANUAL 2.0 % (0.0-5.0); LYMPHOCYTES % MANUAL 11.0 % (20.0-50.0); METAMYELOCYTES % 2.0 % (0-0)
[2025-01-22 19:53] LABS: MONOCYTES % MANUAL 6.0 % (2.0-8.0); NEUTROPHILS % MANUAL 74.0 % (45.0-75.0); PLATELET ESTIMATE NORMAL; PLATELET SATELLITISM FEW
[2025-01-22 20:00] VITALS: BP 113/83; PULSE 77; RESP 19; TEMP 37.1; O2SAT 96
[2025-01-23] VITALS: BP 154/73; PULSE 130; RESP 20; TEMP 36.9; O2SAT 93
[2025-01-23 04:00] VITALS: BP 105/54; PULSE 66; RESP 18; TEMP 36.8; O2SAT 98
[2025-01-23 08:04] VITALS: BP 136/63; PULSE 102; RESP 18; TEMP 36.5; O2SAT 97
[2025-01-23 10:19] LABS: HEMATOCRIT. 32.9 % (42.0-52.0); HEMOGLOBIN. 11.2 g/dL (14.0-18.0); MEAN PLATELET VOLUME 7.7 fl (7.4-10.4); PLATELET 234 x1000/uL (130-400); RED BLOOD CELL COUNT 4.02 mill/uL (4.7-6.1); RED CELL DISTRIBUTION WIDTH 17.3 % (11.6-14.6)
[2025-01-23 10:31] LABS: CREATININE 3.1 mg/dL (0.6-1.3); UREA NITROGEN BLOOD 58.0 mg/dL (9-23)
[2025-01-23 11:06] LABS: CLARITY URINE CLOUDY (CLEAR); COLOR URINE ORANGE (YELLOW); GLUCOSE URINE 3+ (NEGATIVE); KETONES URINE NEGATIVE (NEGATIVE); LEUKOCYTE ESTERASE URINE TRACE (NEGATIVE); NITRITE URINE NEGATIVE (NEGATIVE); OCCULT BLOOD URINE 3+ (NEGATIVE); PH URINE 5.0 (4.5-8.0); PROTEIN URINE TRACE (NEGATIVE); SPECIFIC GRAVITY URINE 1.017 (1.005-1.030); UROBILINOGEN URINE 0.2 E.U./dL (0.2-1.0)
[2025-01-23 11:19] LABS: BACTERIA URINE 3+; RBC URINE TNTC /hpf (0-2); SQUAMOUS EPITHELIAL CELL URINE 1+ /lpf (RARE/1+); YEAST URINE NONE SEEN
[2025-01-23 11:47] VITALS: BP 112/71; PULSE 69; RESP 20; TEMP 36.6; O2SAT 97
[2025-01-23 14:18] LABS: EOSINOPHILS % MANUAL 5.0 % (0.0-5.0); LYMPHOCYTES % MANUAL 4.0 % (20.0-50.0); MONOCYTES % MANUAL 4.0 % (2.0-8.0); NEUTROPHILS % MANUAL 87.0 % (45.0-75.0)
[2025-01-23 14:19] LABS: PLATELET ESTIMATE NORMAL
[2025-01-23 16:11] VITALS: BP 134/68; PULSE 72; RESP 18; TEMP 97.5
[2025-01-23 16:29] VITALS: BP 129/60; PULSE 57; RESP 20; TEMP 36.7; O2SAT 97
== END 2025-01-23 16:40 | disposition home health service (06) | DRG 720 ==
LOC: ER 03:34 → MICUNO 04:17 → EDBEDREQTM 04:43 → EDBEDREQ 04:43 → ENRESERV 04:53 → MICUSO 01-15 16:15 → 5EST 01-16 16:20 → 7WST 01-22 02:03
PROVIDERS: ADMIT Internal Medicine; ATTEND Internal Medicine
PROC: 5A1955Z Respiratory Ventilation, Greater than 96 Consecutive Hours (ICD-10-PCS; principal; 2025-01-08)
PROC: 0BH17EZ Insertion of Endotracheal Airway into Trachea, Via Natural or Artificial Opening (ICD-10-PCS; 2025-01-08)
PROC: 5A09357 Assistance with Respiratory Ventilation, Less than 24 Consecutive Hours, Continuous Positive Airway Pressure (ICD-10-PCS; 2025-01-08)
PROC: 02HV33Z Insertion of Infusion Device into Superior Vena Cava, Percutaneous Approach (ICD-10-PCS; 2025-01-08)
PROC: B548ZZA Ultrasonography of Superior Vena Cava, Guidance (ICD-10-PCS; 2025-01-08)
PROC: 5A0935A Assistance with Respiratory Ventilation, Less than 24 Consecutive Hours, High Flow/Velocity Cannula (ICD-10-PCS; 2025-01-13)
PROC: 4A02XM4 Measurement of Cardiac Total Activity, External Approach (ICD-10-PCS; 2025-01-19)
PROC: 3E073KZ Introduction of Other Diagnostic Substance into Coronary Artery, Percutaneous Approach (ICD-10-PCS; 2025-01-19)
DX: A41.9 Sepsis, unspecified organism (principal); R65.21 Severe sepsis with septic shock; J96.02 Acute respiratory failure with hypercapnia; J96.01 Acute respiratory failure with hypoxia; I16.1 Hypertensive emergency; I50.23 Acute on chronic systolic (congestive) heart failure; G93.40 Encephalopathy, unspecified; I25.110 Atherosclerotic heart disease of native coronary artery with unstable angina pectoris; I42.9 Cardiomyopathy, unspecified; E66.01 Morbid (severe) obesity due to excess calories; I71.40 Abdominal aortic aneurysm, without rupture, unspecified; J18.9 Pneumonia, unspecified organism; N17.9 Acute kidney failure, unspecified; I13.0 Hypertensive heart and chronic kidney disease with heart failure and stage 1 through stage 4 chronic kidney disease, or unspecified chronic kidney disease; I72.3 Aneurysm of iliac artery; N18.9 Chronic kidney disease, unspecified; R31.0 Gross hematuria; J44.1 Chronic obstructive pulmonary disease with (acute) exacerbation; R73.9 Hyperglycemia, unspecified; J44.0 Chronic obstructive pulmonary disease with (acute) lower respiratory infection; E87.0 Hyperosmolality and hypernatremia; I48.91 Unspecified atrial fibrillation; I34.0 Nonrheumatic mitral (valve) insufficiency; F41.9 Anxiety disorder, unspecified; E87.29 Other acidosis; J90 Pleural effusion, not elsewhere classified; Z20.822 Contact with and (suspected) exposure to COVID-19; I48.92 Unspecified atrial flutter; F39 Unspecified mood [affective] disorder; I42.0 Dilated cardiomyopathy; Z91.148 Patient's other noncompliance with medication regimen for other reason; Z68.42 Body mass index [BMI] 45.0-49.9, adult; I25.2 Old myocardial infarction; Z55.6 Problems related to health literacy; Z79.899 Other long term (current) drug therapy
CPT/HCPCS: 31500; 31720; 36415; 36573; 36600; 71045; 74176; 76604; 76700; 78452; 78580; 80048; 80053; 80061; 80076; 80202; 80305; 81003; 82375; 82550; 82570; 82805; 82962; 83036; 83520; 83605; 83735; 83880; 83935; 84100; 84145; 84156; 84300; 84443; 84478; 84484; 85025; 85027; 85379; 86038; 86160; 86256; 87070; 87420; 87426; 87804; 93005; 93017; 93306; 93922; 93970; 94003; 94070; 94640; 94660; 94664; 97110; 97162; 97166; 97530; 97535; 98960; 99291; A4606; A9500; C1725; J0282; J1650; J1815; J1938; J2003; J2250; J2270; J2405; J2470; J2543; J2704; J2785; J2919; J3010; J3373; J3475; J3490; J7042; J7060; J7512

== ENCOUNTER 2025-03-23 00:07 | Inpatient (IN) | payer MEDICAID ==
[~2025-03-23] VITALS: Ht 175.3 cm; Wt 144.7 kg
[2025-03-23] VITALS (14 sets, daily range): BP systolic 137–178; BP diastolic 76–114; PULSE 60–85; RESP 16–32; TEMP 36.5–36.9; O2SAT 93–99
[~2025-03-23 00:07] MED LIST: AMI2 PO; APIX5TAB MT; CARLA MT; COR12 PO; EMPA10TA PO; FURO-151 MT; HYDR100T31 NG; ISOS20TA8 MT
[2025-03-23] MEDS: PIPERACILLIN/TAZO 3.375G/50ML 50 ML IV ONE (00:22)
[2025-03-23] MEDS: METHYLPREDNISOLONE SOD SUCC 125MG/2ML (ACT-O-VIAL) IV ONE (00:22)
[2025-03-23] MEDS: MAGNESIUM 2 G PREMIX 50 ML IV ONE (00:23)
[2025-03-23] MEDS: IPRATROPIUM BROMIDE (0.02%) 0.5MG/2.5ML NEB HHN ONE (00:27)
[2025-03-23] MEDS: ALBUTEROL (0.083%) 2.5MG/3ML NEB HHN ONE (00:27)
[2025-03-23 00:32] LABS: BASOPHILS % 1.1 % (0.0-2.0); EOSINOPHILS % 4.2 % (0.0-5.0); HEMATOCRIT. 36.1 % (42.0-52.0); HEMOGLOBIN. 11.9 g/dL (14.0-18.0); LYMPHOCYTES % 15.6 % (20.0-50.0); MEAN PLATELET VOLUME 7.7 fl (7.4-10.4); MONOCYTES % 6.6 % (2.0-8.0); NEUTROPHILS % 72.5 % (40.0-76.0); PLATELET 333 x1000/uL (130-400); RED BLOOD CELL COUNT 4.48 mill/uL (4.7-6.1); RED CELL DISTRIBUTION WIDTH 17.6 % (11.6-14.6)
[2025-03-23 00:45] LABS: UREA NITROGEN BLOOD 22 mg/dL (9-23)
[2025-03-23 00:47] LABS: ASPARTATE AMINOTRANSFERASE 27 IU/L (<34); BILIRUBIN DIRECT 0.5 mg/dL (<=3.0); BILIRUBIN TOTAL 1.5 mg/dL (0.1-1.0)
[2025-03-23 00:48] LABS: PROTEIN TOTAL 7.6 g/dL (6.0-8.3)
[2025-03-23 00:53] LABS: CREATININE 1.8 mg/dL (0.6-1.3)
[2025-03-23 00:59] LABS: INR 1.1
[2025-03-23] MEDS: VANCOMYCIN 1G PREMIX 200 ML IV ONE (01:00)
[2025-03-23 01:57] LABS: CLARITY URINE CLEAR (CLEAR); COLOR URINE YELLOW (YELLOW); GLUCOSE URINE 3+ (NEGATIVE); KETONES URINE NEGATIVE (NEGATIVE); LEUKOCYTE ESTERASE URINE NEGATIVE (NEGATIVE); NITRITE URINE NEGATIVE (NEGATIVE); OCCULT BLOOD URINE TRACE (NEGATIVE); PH URINE 6.0 (4.5-8.0); PROTEIN URINE 4+ (NEGATIVE); SPECIFIC GRAVITY URINE 1.027 (1.005-1.030); UROBILINOGEN URINE 1.0 E.U./dL (0.2-1.0)
[2025-03-23 02:13] LABS: BG BASE EXCESS -0.5 mmol/L (-2.0-3.0); BG CARBOXYHEMOGLOBIN 0.8 % (0.5-1.5); BG DEOXYHEMOGLOBIN 3.0 % (0.0-5.0); BG FRACTION INSPIRED OXYGEN 50; BG HCO3 ACT 24.4 mmol/L (21.0-28.0); BG METHEMOGLOBIN 0.2 % (0.5-1.5); BG OXYGEN SATURATION 97.0 % (94.0-98.0); BG OXYHEMOGLOBIN 96.0 % (94.0-98.0); BG PCO2 41.4 mmHg (35.0-48.0); BG PH 7.389 (7.350-7.450); BG PO2 98.2 mmHg (83.0-108.0); BG SAMPLE SITE LEFT RADIAL; BG TOTAL HEMOGLOBIN 11.8 g/dL (13.5-17.5); BG TOTAL RESPIRATORY RATE 22 b/min; BG VENT MODE MASK - BIPAP; BG VENT RATE 18.0 set
[2025-03-23] MEDS: SODIUM CHLORIDE 0.9% 100 ML IV ONE (02:14)
[2025-03-23 02:19] LABS: *AMPHETAMINES SCREEN URINE NEGATIVE (NEGATIVE); *BARBITURATES SCREEN URINE NEGATIVE (NEGATIVE); *BENZODIAZEPINES SCREEN URINE NEGATIVE (NEGATIVE); *COCAINE SCREEN URINE NEGATIVE (NEGATIVE); METHADONE URINE SCREEN NEGATIVE (NEGATIVE); OPIATES URINE SCREEN NEGATIVE (NEGATIVE); PHENCYCLIDINE URINE SCREEN NEGATIVE (NEGATIVE)
[2025-03-23 02:20] LABS: CANNABINOID URINE SCREEN PRESUMPTIVE POSITIVE (NEGATIVE); ECSTASY MDMA SCREEN URINE NEGATIVE (NEGATIVE)
[2025-03-23 03:35] LABS: SQUAMOUS EPITHELIAL CELL URINE FEW /lpf (RARE/1+)
[2025-03-23 03:36] LABS: BACTERIA URINE NONE SEEN; WBC URINE 0-2 /hpf (0-2)
[2025-03-23 03:47] LABS: TROPONIN I HIGH SENSITIVITY 22 ng/L (3.0-53)
[2025-03-23 06:44] LABS: INFLUENZA TYPE A Presumptive Negative (Pres. Neg.); INFLUENZA TYPE B Presumptive Negative (Pres. Neg.)
[2025-03-23] MEDS: FUROSEMIDE 40MG TABLET PO SCH (11:59)
[2025-03-23] MEDS: CARVEDILOL 12.5MG TABLET PO SCH (11:59)
[2025-03-23] MEDS: AMIODARONE 200MG TABLET PO SCH (11:59)
[2025-03-23] MEDS: EMPAGLIFLOZIN 10MG TABLET PO SCH (12:00)
[2025-03-23] MEDS: HYDRALAZINE HCL 100MG TABLET PO SCH (14:04)
[2025-03-23] MEDS: ISOSORBIDE DINITRATE 20MG TABLET PO SCH (14:05)
[2025-03-23] MEDS: METHYLPREDNISOLONE SOD SUCC 40MG/ML (ACT-O-VIAL) IV SCH (14:34)
[2025-03-23] MEDS: IPRATROPIUM/ALBUTEROL 0.5-3(2.5)MG/3ML NEB HHN SCH (15:10)
[2025-03-23] MEDS: ISOSORBIDE DINITRATE 10MG TABLET PO SCH (17:27)
[2025-03-23] MEDS: ENOXAPARIN 120MG/0.8ML SYR SUBCUT SCH (17:29)
[2025-03-23] MEDS ORDERED: APIXABAN 5 MG TABLET PO SCH (21:00)
[2025-03-23] MEDS: ATORVASTATIN CALCIUM 40MG TABLET PO SCH (21:17)
[2025-03-23] MEDS: VANCOMYCIN 1GM PMX (XELLIA) 200 ML IV SCH (21:17)
[2025-03-23] MEDS: SACUBITRIL/VALSARTAN 24MG/26MG TABLET PO SCH (21:17)
[2025-03-24] VITALS (20 sets, daily range): BP systolic 128–177; BP diastolic 78–121; PULSE 58–89; RESP 13–23; TEMP 36.4–36.8; O2SAT 93–100
[2025-03-24 05:26] LABS: HEMATOCRIT. 37.9 % (42.0-52.0); HEMOGLOBIN. 12.3 g/dL (14.0-18.0); MEAN PLATELET VOLUME 7.6 fl (7.4-10.4); PLATELET 335 x1000/uL (130-400); RED BLOOD CELL COUNT 4.70 mill/uL (4.7-6.1); RED CELL DISTRIBUTION WIDTH 17.2 % (11.6-14.6)
[2025-03-24 05:35] LABS: CREATININE 1.6 mg/dL (0.6-1.3); TRIGLYCERIDE 79.0 mg/dL (0-150); UREA NITROGEN BLOOD 30.0 mg/dL (9-23)
[2025-03-24 05:36] LABS: LDL CHOLESTEROL 73.0 mg/dL (5-100)
[2025-03-24] MEDS: FUROSEMIDE 40MG/4ML VIAL IVP SCH (09:33)
[2025-03-24] MEDS: SPIRONOLACTONE 25MG TABLET PO SCH (09:33)
[2025-03-24] MEDS: ASPIRIN 81MG EC TABLET PO SCH (09:34)
[2025-03-24 14:03] LABS: TROPONIN I HIGH SENSITIVITY 19 ng/L (3.0-53)
[2025-03-24 16:54] LABS: LYMPHOCYTES % MANUAL 5.0 % (20.0-50.0); MONOCYTES % MANUAL 3.0 % (2.0-8.0); NEUTROPHILS % MANUAL 92.0 % (45.0-75.0); PLATELET ESTIMATE NORMAL
[2025-03-24] MEDS: VANCOMYCIN 1.25GM/250ML IV SCH (21:31)
[2025-03-25] VITALS (16 sets, daily range): BP systolic 136–168; BP diastolic 78–116; PULSE 59–71; RESP 15–26; TEMP 36.5–37.1; O2SAT 93–99
[2025-03-25 06:18] LABS: HEMATOCRIT. 40.2 % (42.0-52.0); HEMOGLOBIN. 13.1 g/dL (14.0-18.0); MEAN PLATELET VOLUME 7.6 fl (7.4-10.4); PLATELET 381 x1000/uL (130-400); RED BLOOD CELL COUNT 4.99 mill/uL (4.7-6.1); RED CELL DISTRIBUTION WIDTH 17.3 % (11.6-14.6)
[2025-03-25 06:32] LABS: TROPONIN I HIGH SENSITIVITY 14 ng/L (3.0-53)
[2025-03-25 06:33] LABS: CREATININE 1.7 mg/dL (0.6-1.3); UREA NITROGEN BLOOD 32.0 mg/dL (9-23)
[2025-03-25] MEDS ORDERED: VANCOMYCIN 1.5GM PMX (XELLIA) 300 ML IV SCH (09:00)
[2025-03-25 11:01] LABS: BAND% 6.0 % (1.0-6.0); LYMPHOCYTES % MANUAL 3.0 % (20.0-50.0); MONOCYTES % MANUAL 1.0 % (2.0-8.0); NEUTROPHILS % MANUAL 90.0 % (45.0-75.0); PLATELET ESTIMATE NORMAL
[2025-03-25] MEDS: ISOSORBIDE DINITRATE 20MG TABLET PO SCH (17:31)
[2025-03-26] VITALS (12 sets, daily range): BP systolic 146–178; BP diastolic 80–100; PULSE 62–86; RESP 17–23; TEMP 36–37.1; O2SAT 69–98
[2025-03-26] MEDS: SACUBITRIL/VALSARTAN 49MG/51MG TABLET PO SCH (21:55)
[2025-03-26] MEDS: ENOXAPARIN 80MG/0.8ML SYR SUBCUT SCH (21:55)
[2025-03-27] VITALS (8 sets, daily range): BP systolic 116–155; BP diastolic 68–90; PULSE 60–72; RESP 17–18; TEMP 36–36.6; O2SAT 90–98
[2025-03-27 06:14] LABS: HEMATOCRIT. 38.9 % (42.0-52.0); HEMOGLOBIN. 13.1 g/dL (14.0-18.0); MEAN PLATELET VOLUME 7.4 fl (7.4-10.4); PLATELET 358 x1000/uL (130-400); RED BLOOD CELL COUNT 4.91 mill/uL (4.7-6.1); RED CELL DISTRIBUTION WIDTH 17.1 % (11.6-14.6)
[2025-03-27 06:30] LABS: CREATININE 1.8 mg/dL (0.6-1.3); UREA NITROGEN BLOOD 41 mg/dL (9-23)
[2025-03-27 14:35] LABS: BAND% 9.0 % (1.0-6.0); LYMPHOCYTES % MANUAL 11.0 % (20.0-50.0); METAMYELOCYTES % 1.0 % (0-0); MONOCYTES % MANUAL 4.0 % (2.0-8.0); MYELOCYTES % 1.0 % (0-0); NEUTROPHILS % MANUAL 74.0 % (45.0-75.0); PLATELET ESTIMATE NORMAL
[2025-03-28] VITALS (8 sets, daily range): BP systolic 104–146; BP diastolic 67–86; PULSE 44–67; RESP 16–20; TEMP 36.2–36.4; O2SAT 93–99
[2025-03-29] VITALS: BP 131/80; PULSE 60; RESP 17; TEMP 36.2; O2SAT 98
[2025-03-29 04:00] VITALS: BP 133/79; PULSE 57; PULSE 92; RESP 16; RESP 17; TEMP 36.2; TEMP 36.9; O2SAT 100; O2SAT 96
[2025-03-29 07:16] LABS: HEMATOCRIT. 38.1 % (42.0-52.0); HEMOGLOBIN. 12.5 g/dL (14.0-18.0); MEAN PLATELET VOLUME 7.5 fl (7.4-10.4); PLATELET 355 x1000/uL (130-400); RED BLOOD CELL COUNT 4.78 mill/uL (4.7-6.1); RED CELL DISTRIBUTION WIDTH 17.4 % (11.6-14.6)
[2025-03-29 07:47] LABS: CREATININE 1.7 mg/dL (0.6-1.3)
[2025-03-29 07:48] LABS: UREA NITROGEN BLOOD 45.0 mg/dL (9-23)
[2025-03-29 08:00] VITALS: BP 143/68; PULSE 59; RESP 17; TEMP 36.4; O2SAT 95
[2025-03-29 12:00] VITALS: BP 135/74; PULSE 59; RESP 19; TEMP 36.7; O2SAT 87
[2025-03-29 13:05] LABS: BAND% 2.0 % (1.0-6.0); LYMPHOCYTES % MANUAL 7.0 % (20.0-50.0); MONOCYTES % MANUAL 2.0 % (2.0-8.0); NEUTROPHILS % MANUAL 89.0 % (45.0-75.0); NUCLEATED RED BLOOD CELLS 1 /100 WBC; PLATELET ESTIMATE NORMAL
[2025-03-29 16:00] VITALS: BP 134/86; PULSE 61; RESP 19; TEMP 36.6; O2SAT 95
[2025-03-29 20:00] VITALS: BP 119/74; PULSE 60; RESP 20; TEMP 36.3; O2SAT 97
[2025-03-29] MEDS: CARVEDILOL 6.25 MG TABLET PO SCH (21:17)
[2025-03-29] MEDS: ENOXAPARIN 80MG/0.8ML SYR SUBCUT NR (22:00)
[2025-03-30] VITALS: BP 125/68; PULSE 57; RESP 17; TEMP 36.3; O2SAT 96
[2025-03-30 04:00] VITALS: BP 143/85; PULSE 60; RESP 17; TEMP 36.2; O2SAT 98
[2025-03-30] MEDS: ENOXAPARIN 150MG/ML SYR SUBCUT SCH (06:05)
[2025-03-30 07:38] LABS: CREATININE 1.8 mg/dL (0.6-1.3); UREA NITROGEN BLOOD 46 mg/dL (9-23)
[2025-03-30 08:00] VITALS: BP 130/67; PULSE 58; RESP 18; TEMP 36.4; O2SAT 95
[2025-03-30 08:27] LABS: HEMATOCRIT. 38.3 % (42.0-52.0); HEMOGLOBIN. 12.6 g/dL (14.0-18.0); MEAN PLATELET VOLUME 7.8 fl (7.4-10.4); PLATELET 358 x1000/uL (130-400); RED BLOOD CELL COUNT 4.81 mill/uL (4.7-6.1); RED CELL DISTRIBUTION WIDTH 17.6 % (11.6-14.6)
[2025-03-30 12:00] VITALS: BP 110/58; PULSE 59; RESP 18; TEMP 36.3; O2SAT 95
[2025-03-30] MEDS ORDERED: LINE600T14 MT (14:56)
[2025-03-30 16:00] VITALS: BP 139/79; PULSE 59; RESP 19; TEMP 37.1; O2SAT 96
[2025-03-30 20:00] VITALS: BP 147/83; PULSE 62; RESP 20; TEMP 36.4; O2SAT 95
[2025-03-31] VITALS: BP 142/80; PULSE 77; RESP 17; TEMP 36.2; O2SAT 98
[2025-03-31 04:00] VITALS: BP 147/86; PULSE 57; RESP 18; TEMP 36.4; O2SAT 96
[2025-03-31 06:39] LABS: HEMATOCRIT. 40.8 % (42.0-52.0); HEMOGLOBIN. 13.4 g/dL (14.0-18.0); MEAN PLATELET VOLUME 7.9 fl (7.4-10.4); PLATELET 327 x1000/uL (130-400); RED BLOOD CELL COUNT 5.15 mill/uL (4.7-6.1); RED CELL DISTRIBUTION WIDTH 17.2 % (11.6-14.6)
[2025-03-31 07:30] LABS: CREATININE 1.7 mg/dL (0.6-1.3); UREA NITROGEN BLOOD 38.0 mg/dL (9-23)
[2025-03-31 08:00] VITALS: BP 146/78; PULSE 60; RESP 18; TEMP 36.6; O2SAT 96
[2025-03-31 08:04] LABS: LYMPHOCYTES % MANUAL 5.0 % (20.0-50.0); MONOCYTES % MANUAL 2.0 % (2.0-8.0); NEUTROPHILS % MANUAL 93.0 % (45.0-75.0); PLATELET ESTIMATE NORMAL
[2025-03-31] MEDS ORDERED: LINE600T14 MT (09:40)
[2025-03-31 12:00] VITALS: BP 148/81; PULSE 66; RESP 18; TEMP 36.3
[2025-03-31 13:46] VITALS: BP 148/71; PULSE 66; RESP 18; TEMP 97.4
[2025-03-31 19:03] LABS: LYMPHOCYTES % MANUAL 5.0 % (20.0-50.0); MONOCYTES % MANUAL 4.0 % (2.0-8.0); NEUTROPHILS % MANUAL 91.0 % (45.0-75.0); PLATELET ESTIMATE NORMAL
== END 2025-03-31 14:51 | disposition home or self-care (01) | DRG 720 ==
LOC: EDBD 00:07 → ER 00:07 → 5EST 02:09 → EDBEDREQ 02:30 → EDBEDREQTM 02:30 → ENRESERV 07:15 → 5WST 03-26 21:22
PROVIDERS: ADMIT Internal Medicine; ATTEND Internal Medicine
PROC: 5A09357 Assistance with Respiratory Ventilation, Less than 24 Consecutive Hours, Continuous Positive Airway Pressure (ICD-10-PCS; principal; 2025-03-23)
PROC: 5A09357 Assistance with Respiratory Ventilation, Less than 24 Consecutive Hours, Continuous Positive Airway Pressure (ICD-10-PCS; 2025-03-24)
DX: A41.9 Sepsis, unspecified organism (principal); I50.23 Acute on chronic systolic (congestive) heart failure; J96.01 Acute respiratory failure with hypoxia; Z79.01 Long term (current) use of anticoagulants; N17.9 Acute kidney failure, unspecified; J44.1 Chronic obstructive pulmonary disease with (acute) exacerbation; I71.40 Abdominal aortic aneurysm, without rupture, unspecified; I11.0 Hypertensive heart disease with heart failure; I42.9 Cardiomyopathy, unspecified; I48.91 Unspecified atrial fibrillation; R61 Generalized hyperhidrosis; Z79.82 Long term (current) use of aspirin; Z79.899 Other long term (current) drug therapy; Z79.84 Long term (current) use of oral hypoglycemic drugs
CPT/HCPCS: 36415; 36600; 71045; 80048; 80061; 80076; 80202; 80305; 80320; 81003; 82375; 82550; 82805; 83605; 83735; 83880; 84145; 84484; 85025; 87077; 87426; 87804; 93005; 94070; 94640; 94660; 96365; 96368; 96375; 99291; A4606; J1650; J1938; J2543; J2919; J3373; J3475; G0480